=== PATIENT | male | born 1970 | race Caucasian/White ===

== ENCOUNTER 2018-09-25 05:42 | Observation (INO) | payer BC ==
[2018-09-19 12:06] LABS: INR 0.96; PROTIME 12.9 Sec (11.9-14.9)
[2018-09-25] MEDS: CEFAZOLIN 2 GM/50 ML (PMX) 50 ML IVPB (06:42)
[2018-09-25] MEDS: LACTATED RINGER'S 1,000 ML IV* (06:42)
[2018-09-25] MEDS ORDERED: PROPOFOL 20 ML (06:49)
[2018-09-25] MEDS ORDERED: FENTAnyl 50 MCG/ML VIAL (06:49)
[2018-09-25] MEDS ORDERED: ROCURONIUM 50 MG INJ (06:50)
[2018-09-25] MEDS ORDERED: SUCCINYLCHOLINE CHLORIDE 100 MG/5 ML SYG IV (06:50)
[2018-09-25] MEDS ORDERED: LIDOCAINE 2% (SDV) 5 ML INJ (06:50)
[2018-09-25] MEDS ORDERED: MIDAZOLAM 1 MG/ML 2 ML INJ (06:51)
[2018-09-25] MEDS ORDERED: METOCLOPRAMIDE 10 MG INJ (06:52)
[2018-09-25] MEDS ORDERED: POLYMYXIN/BACITRACIN 1L IRRIG (06:56)
[2018-09-25] MEDS ORDERED: THROMBIN (BOVINE) 5,000 UNIT VIAL TP (06:56)
[2018-09-25] MEDS ORDERED: GELATIN SIZE 100 SPONGE (06:56)
[2018-09-25] MEDS ORDERED: MIDAZOLAM 1 MG/ML 2 ML INJ IV (07:00)
[2018-09-25] MEDS ORDERED: ONDANSETRON 4 MG INJ (07:00)
[2018-09-25] MEDS ORDERED: HALOPERIDOL 5 MG INJ IV (07:00)
[2018-09-25] MEDS ORDERED: MEPERIDINE 25 MG INJ IV (07:00)
[2018-09-25] MEDS ORDERED: DIPHENHYDRAMINE 50 MG INJ IV (07:00)
[2018-09-25] MEDS ORDERED: hydrALAzine 20 MG INJ IV (07:00)
[2018-09-25] MEDS ORDERED: LORAZEPAM 2 MG INJ IV (07:00)
[2018-09-25] MEDS ORDERED: HYDROmorphONE 1 MG/5 ML IV SYRINGE IV ×3 (07:00)
[2018-09-25] MEDS ORDERED: DESFLURANE 15 MIN (07:00)
[2018-09-25] MEDS ORDERED: IPRATROPIUM (NEB) 0.5 MG/2.5 ML AMP HHN (07:00)
[2018-09-25] MEDS ORDERED: LEVALBUTEROL (NEB) 1.25 MG/0.5 ML AMP HHN (07:00)
[2018-09-25] MEDS ORDERED: LABETALOL HCL 20MG INJ IV (07:00)
[2018-09-25] MEDS ORDERED: HYDROmorphONE 2 MG/ML SYG (07:45)
[2018-09-25] MEDS: BUPIVACAINE 0.25% (MPF) 30 ML INJ (08:11)
[2018-09-25] MEDS ORDERED: NEOSTIGMINE 3 MG/3 ML SYRINGE (08:34)
[2018-09-25] MEDS ORDERED: GLYCOPYRROLATE 0.4 MG INJ (08:34)
[2018-09-25 09:08] LABS: INR 1.01; PARTIAL THROMBOPLASTIN TIME 30.4 Sec (23.0-35.0); PROTIME 13.4 Sec (11.9-14.9)
[2018-09-25] MEDS: FENTAnyl 50 MCG/ML VIAL IV ×2 (09:24→09:36)
[2018-09-25] MEDS: ONDANSETRON 4 MG INJ IV ×2 (09:24→15:41)
[2018-09-25] MEDS ORDERED: ACETAMINOPHEN 325 MG TAB PO (09:30)
[2018-09-25] MEDS ORDERED: AL HYDROX/MG HYDROX/SIMETH 30 ML CUP PO (09:30)
[2018-09-25] MEDS ORDERED: NALOXONE (0.4 MG/ML) INJ IV (09:30)
[2018-09-25] MEDS ORDERED: DIAZEPAM 5 MG/ML SYG IM (09:30)
[2018-09-25] MEDS ORDERED: CEPASTAT LOZENGE MT (09:30)
[2018-09-25] MEDS ORDERED: DIPHENHYDRAMINE 50 MG CAP PO (09:30)
[2018-09-25] MEDS ORDERED: ZOLPIDEM 5 MG TAB PO (09:30)
[2018-09-25] MEDS ORDERED: NACL 0.9% 3 ML SYG IV (09:30)
[2018-09-25] MEDS ORDERED: HYDROCODONE/APAP (5/325) TAB PO (09:30)
[2018-09-25] MEDS ORDERED: PROCHLORPERAZINE 10 MG TAB PO (09:30)
[2018-09-25] MEDS ORDERED: TRIMETHOBENZAMIDE 100 MG/ML VIAL IM (09:30)
[2018-09-25] MEDS ORDERED: DIAZEPAM 5 MG TAB PO (09:30)
[2018-09-25] MEDS ORDERED: HYDROmorphONE 0.2 MG/ML PCA (09:49)
[2018-09-25] MEDS: HYDROmorphONE 0.2 MG/ML PCA IV (10:14)
[2018-09-25] MEDS: CEFAZOLIN 1 GM/50 ML (PMX) 50 ML IVPB ×3 (11:28→23:57)
[2018-09-25] MEDS: DEXTROSE 5%-0.45% NACL 1,000 ML IV ×3 (11:29→21:24)
[2018-09-25] MEDS: RANITIDINE 150 MG TAB PO (21:20)
[2018-09-26 05:09] LABS: HEMATOCRIT 37.7 % (42.0-52.0); HEMOGLOBIN 12.4 g/dl (14.0-18.0)
[2018-09-26 05:34] LABS: ANION GAP 7 (5-13); BLOOD UREA NITROGEN 10 mg/dl (7-20); CALCIUM 9.3 mg/dl (8.4-10.2); CARBON DIOXIDE 29 mmol/L (21-31); CHLORIDE 107 mmol/L (97-110); CREATININE 0.83 mg/dl (0.61-1.24); Estimated GFR > 60 mL/min (>60); GLUCOSE 108 mg/dl (70-220); POTASSIUM 4.4 mmol/L (3.5-5.1); SODIUM 143 mmol/L (135-144)
[2018-09-26] MEDS: CEFAZOLIN 1 GM/50 ML (PMX) 50 ML IVPB (05:49)
[2018-09-26] MEDS ORDERED: BETHANECHOL 25 MG TAB PO (08:00)
[2018-09-26] MEDS: DEXTROSE 5%-0.45% NACL 1,000 ML IV (08:11)
[2018-09-26] MEDS: DOCUSATE SODIUM 100 MG CAP PO (09:23)
[2018-09-26] MEDS: ASCORBIC ACID 500 MG TAB PO (09:24)
[2018-09-26] MEDS: RANITIDINE 150 MG TAB PO (09:24)
[2018-09-26] MEDS: FERROUS SULFATE (EC) 325 MG TAB PO ×2 (09:24→13:25)
[2018-09-26] MEDS: BETHANECHOL 25 MG TAB PO (09:28)
[2018-09-26 10:30] LABS: ADD UMIC NO; UR ASCORBIC ACID NEGATIVE (NEGATIVE); UR BILIRUBIN (Dip) NEGATIVE (NEGATIVE); UR BLOOD (Dip) NEGATIVE (NEGATIVE); UR CLARITY CLEAR (CLEAR); UR COLOR STRAW (YELLOW); UR GLUCOSE (Dip) NEGATIVE (NEGATIVE); UR KETONES (Dip) NEGATIVE (NEGATIVE); UR LEUKOCYTE ESTERASE (Dip) NEGATIVE Leu/ul (NEGATIVE); UR NITRITE (Dip) NEGATIVE (NEGATIVE); UR SPECIFIC GRAVITY (Dip) 1.005 (1.003-1.030); UR TOTAL PROTEIN (Dip) NEGATIVE (NEGATIVE); UR UROBILINOGEN (Dip) NEGATIVE (NEGATIVE)
[2018-09-26] MEDS: HYDROCODONE/APAP (5/325) TAB PO (16:36)
== END 2018-09-26 17:00 | disposition home or self-care (01) ==
LOC: SDS 05:42 → REC 09:05 → MS1 09:47
DX: M51.16 Intervertebral disc disorders with radiculopathy, lumbar region (principal)
CPT/HCPCS: 63030; 72020; 80048; 81003; 85014; 85018; 85610; 85730; 86850; 86900; 86901; 86920; 87086; 88304; 88311; 97116; 97162; 97530; 99217